=== PATIENT | female | born 1965 | race Caucasian/White ===

== ENCOUNTER 2018-10-23 21:14 | Emergency (ER) | payer SELFPAY ==
[~2018-10-23] VITALS: Ht 152.4 cm; Wt 79.7 kg
[2018-10-23 21:39] VITALS: Ht 152.4 cm; Wt 79.7 kg
[2018-10-23] MEDS ORDERED: ONDANSETRON 4 MG INJ IV STA (23:31)
[2018-10-23] MEDS ORDERED: SOD CHLORIDE 0.9% 500 ML IV STA (23:31)
[2018-10-23] MEDS ORDERED: morphine 2 MG INJ IV STA (23:31)
[2018-10-24] MEDS ORDERED: ACET500C5 PO (01:32)
[2018-10-24] MEDS ORDERED: ENAL10TA PO (01:32)
[2018-10-24] MEDS ORDERED: RANI150T35 PO (02:12)
[2018-10-24] MEDS ORDERED: ONDA4TAB14 PO (02:12)
--- NOTE | 2018-10-24 02:15 | ERD ---
ER Documentation Chief Complaint Chief Complaint AP n/v DESHPANDE HPI This is a very pleasant 53-year-old female complains of abdominal pain epigastric in location with 3 episodes of vomiting nonbilious and nonbloody. She also complains of mild headache associated with it. Denies any fevers or chills and vomiting nonbilious nonbloody again. No diarrhea. This started a few hours ago and got progressively worse. Denies any other current issues. ROS All systems reviewed and are negative except as per history of present illness. Medications Home Meds Active Scripts Ondansetron (Ondansetron Odt) 4 Mg Tab.rapdis, 4 MG PO Q6H PRN for NAUSEA AND/OR VOMITING, #10 TAB Prov:MANOLO PEARSON. 10/24/18 Ranitidine Hcl* (Zantac*) 150 Mg Tablet, 150 MG PO BID PRN for EPIGASTRIC PAIN, #30 TAB Prov:MANOLO PEARSON S. 10/24/18 Reported Medications Enalapril Maleate* (Enalapril Maleate*) 10 Mg Tablet, 10 MG PO BID, TAB 10/24/18 Acetaminophen* (Tylophen*) 500 Mg Capsule, 500 MG PO Q6H PRN for PAIN LEVEL 1-5, TAB 10/24/18 Allergies Allergies: Coded Allergies: No Known Allergy (Unverified , 10/23/18) PMhx/Soc Medical and Surgical Hx: pt denies Medical Hx, pt denies Surgical Hx Hx Alcohol Use: No Hx Substance Use: No Hx Tobacco Use: No Smoking Status: Never smoker Physical Exam Vitals Vital Signs Date Temp Pulse Resp B/P (MAP) Pulse Ox O2 O2 Flow FiO2 Time Delivery Rate 10/24/18 70 17 136/72 97 Room Air 00:08 (93) 10/23/18 97.0 88 20 153/93 99 21:39 (113) Physical Exam Const: No acute distress Head: Atraumatic Eyes: Normal Conjunctiva ENT: Normal External Ears, Nose and Mouth. Neck: Full range of motion. No meningismus. Resp: Clear to auscultation bilaterally Cardio: Regular rate and rhythm, no murmurs Abd: Soft, non tender, non distended. Normal bowel sounds Skin: No petechiae or rashes Back: No midline or flank tenderness Ext: No cyanosis, or edema Neur: Awake and alert Psych: Normal Mood and Affect Result Diagram: 10/23/18 2358 10/23/18 2358 Results 24 hrs Laboratory Tests Test 10/23/18 23:58 10/24/18 00:20 White Blood Count 8.6 10^3/ul Red Blood Count 4.68 10^6/ul Hemoglobin 12.9 g/dl Hematocrit 40.5 % Mean Corpuscular Volume 86.5 fl Mean Corpuscular Hemoglobin 27.6 pg Mean Corpuscular Hemoglobin Concent 31.9 g/dl Red Cell Distribution Width 13.6 % Platelet Count 259 10^3/UL Mean Platelet Volume 11.0 fl Immature Granulocytes % 0.300 % Neutrophils % 72.4 % Lymphocytes % 17.7 % Monocytes % 6.0 % Eosinophils % 3.0 % Basophils % 0.6 % Nucleated Red Blood Cells % 0.0 /100WBC Immature Granulocytes # 0.030 10^3/ul Neutrophils # 6.2 10^3/ul Lymphocytes # 1.5 10^3/ul Monocytes # 0.5 10^3/ul Eosinophils # 0.3 10^3/ul Basophils # 0.1 10^3/ul Nucleated Red Blood Cells # 0.0 10^3/ul Sodium Level 141 mmol/L Potassium Level 3.8 mmol/L Chloride Level 101 mmol/L Carbon Dioxide Level 26 mmol/L Anion Gap 14 Blood Urea Nitrogen 22 mg/dl Creatinine 0.60 mg/dl Est Glomerular Filtrat Rate mL/min > 60 mL/min Glucose Level 115 mg/dl Calcium Level 9.5 mg/dl Total Bilirubin 0.2 mg/dl Direct Bilirubin 0.00 mg/dl Indirect Bilirubin 0.2 mg/dl Aspartate Amino Transf (AST/SGOT) 20 IU/L Alanine Aminotransferase (ALT/SGPT) 21 IU/L Alkaline Phosphatase 116 IU/L Total Protein 7.5 g/dl Albumin 4.4 g/dl Globulin 3.10 g/dl Albumin/Globulin Ratio 1.41 Lipase 54 U/L Urine Color YELLOW Urine Clarity CLEAR Urine pH 7.0 Urine Specific [place] 1.024 Urine Ketones NEGATIVE mg/dL Urine Nitrite NEGATIVE mg/dL Urine Bilirubin NEGATIVE mg/dL Urine Urobilinogen NEGATIVE mg/dL Urine Leukocyte Esterase NEGATIVE Krissy/ul Urine Microscopic RBC 0 /HPF Urine Microscopic WBC 2 /HPF Urine Mucus MODERATE /HPF Urine Hemoglobin NEGATIVE mg/dL Urine Glucose NEGATIVE mg/dL Urine Total Protein 1+ mg/dl Current Medications Medications Dose Sig/Chiqui Start Time Status Last (Trade) Ordered Route PRN Stop Time Admin Dose Reason Admin Sodium 500 ml @ Q1H STAT 10/23/18 DC 10/24/18 Chloride 500 mls/hr IV 23:31 00:51 10/24/18 00:30 Morphine 2 mg ONCE STAT 10/23/18 DC 10/24/18 Sulfate IV 23:31 00:49 (morphine) 10/23/18 23:34 Ondansetron 4 mg ONCE STAT 10/23/18 DC 10/24/18 HCl (Zofran IV 23:31 00:49 Inj) 10/23/18 23:34 Procedures/MDM Emergency department course: Patient seen and evaluated triage nurse. Placed in bed from evaluation. Had blood work done. Given a dose of pain medication with good response. Diagnostic data: CBC: [no e/o of systemic infection or severe anemia] CMP: [no e/o severe acidosis, alkalosis, renal failure, diabetic ketoacidosis, liver disease] Lipase: [no e/o pancreatitis] PT/INR: [normal coagulation] Urine: [no e/o acute infection or hematuria] Medical decision making: Patient's gastrointestinal symptoms have stabilized while in the department. No evidence of severe dehydration, sepsis, or surgical abdomen. Extensive discussion with family and patient that occult disease cannot be ruled out. 8 hour recheck for repeat abdominal exam is planned. Departure Diagnosis: Primary Impression: Abdominal pain Abdominal location: unspecified location Qualified Codes: R10.9 - Unspecified abdominal pain Condition: Stable Patient Instructions: Abdominal Pain MANOLO PEARSON Oct 24, 2018 02:15
[2018-10-24 02:27] VITALS: BP 152/86; PULSE 83; RESP 18
== END 2018-10-24 02:27 | disposition home or self-care (01) ==
LOC: FTE 21:14
DX: R10.13 Epigastric pain (principal); R11.2 Nausea with vomiting, unspecified
CPT/HCPCS: 74176; 80053; 81001; 83690; 85025; 93005; 96374; 96375; 99285; J2270; J2405; J7040